=== PATIENT | male | born 1995 | race Caucasian/White ===

== ENCOUNTER 2020-03-21 10:29 | Emergency (ER) | payer BC ==
--- NOTE | 2020-03-21 10:54 | ER ---
Nurse's Notes [facility] Name: Hai Lockett Age: 24 yrs Sex: Male : 1995 Arrival Date: 03/21/2020 Time: 10:33 Bed 4 Private MD: Diagnosis: Acute upper respiratory infection, unspecified;Acute suppurative otitis media Presentation: 03/21 10:40 Chief complaint: Patient states: Diagnosed with strep throat at another facility last ll1 week. Almost done with his antibiotics, and feels like he should be feeling better already. Bilateral ear pain and throat pain. No known fever. Coronavirus screen: Client denies travel out of the [place] in the last 14 days. At this time, the client does not indicate any symptoms associated with coronavirus-19. Ebola Screen: Patient denies travel to an Ebola-affected area in the 21 days before illness onset. Initial Sepsis Screen: Does the patient meet any 2 criteria? HR > 90 bpm. Risk Assessment: Do you want to hurt yourself or someone else? Patient reports no desire to harm self or others. Onset of symptoms was March 08, 2020. 10:40 Method Of Arrival: Ambulatory ll1 10:40 Acuity: MICKY 4 ll1 Triage Assessment: 10:42 General: Appears comfortable, Behavior is calm, cooperative. Pain: Complains of pain in ll1 Bpth ears and throat Pain currently is 8 out of 10 on a pain scale. Quality of pain is described as aching, Pain began about 10 days Is intermittent. EENT: Ear canal clear on left ear and right ear Reports pain in left ear and right ear when swallowing. Neuro: No deficits noted. Cardiovascular: No deficits noted. Respiratory: No deficits noted. Historical: - Allergies: 10:42 No Known Allergies; ll1 - PSHx: 10:42 None; ll1 - Immunization history:: Flu vaccine status is unknown. - Social history:: Smoking status: Patient reports the use of cigarette tobacco products, smokes one-half pack cigarettes per day, Patient/guardian denies using alcohol, street drugs. Screenin:45 Abuse screen: Denies threats or abuse. Denies injuries from another. Nutritional jr10 screening: No deficits noted. Tuberculosis screening: No symptoms or risk factors identified. Fall Risk None identified. Assessment: 10:52 General: Appears in no apparent distress. Behavior is appropriate for age. Pain: jr10 Complains of pain in sore throat and dilcia earache. Respiratory: Airway is patent Respiratory effort is even, unlabored, Respiratory pattern is regular, symmetrical, Breath sounds are clear bilaterally. Denies shortness of breath. GI: No deficits noted. No signs and/or symptoms were reported involving the gastrointestinal system. EENT: Throat is reddened has patchy exudate bilaterally with gag reflex present, Reports difficulty swallowing nasal congestion nasal discharge dilcia earache and sore throat. Derm: No deficits noted. No signs and/or symptoms reported regarding the dermatologic system. Vital Signs: 10:40 BP 133 / 71; Pulse 110; Resp 18; Temp 98.4; Pulse Ox 100% ; Pain 8/10; ll1 ED Course: 10:33 Patient arrived in ED. mr 10:42 Triage completed. ll1 10:42 Arm band placed on Patient placed in an exam room, on a stretcher. ll1 10:45 Quin Gutierrez RN is Primary Nurse. jr10 10:46 Heriberto Howell PA is PHCP. jr8 10:46 Brian Miller MD is Attending Physician. jr8 10:46 Patient has correct armband on for positive identification. Bed in low position. Call jr10 light in reach. Side rails up X2. Pulse ox on. NIBP on. 10:46 No provider procedures requiring assistance completed. Patient did not have IV access jr10 during this emergency room visit. Administered Medications: No medications were administered Outcome: 10:53 Discharge ordered by . jr8 11:07 Discharged to home ambulatory. jr10 11:07 Condition: good 11:07 Discharge instructions given to patient, Instructed on discharge instructions, follow up and referral plans. Demonstrated understanding of instructions, follow-up care, medications, Prescriptions given X 2. 11:07 Patient left the ED. jr10 Signatures: Unique Gutierrez mr Heriberto Howell PA PA jr8 Claudia Garcia RN RN ll1 Quin Gutierrez RN RN jr10 Corrections: (The following items were deleted from the chart) 11:07 10:52 Respiratory: Airway is patent Respiratory effort is even, unlabored, Respiratory jr10 pattern is regular, symmetrical, Denies shortness of breath jr10
--- NOTE | 2020-03-21 10:54 | EDPHYS ---
Physician Documentation [facility] Name: Hai Lockett Age: 24 yrs Sex: Male : 1995 Arrival Date: 03/21/2020 Time: 10:33 Bed 4 Private MD: ED Physician Brian Miller HPI: 03/21 11:06 This 24 yrs old Male presents to ER via Ambulatory with complaints of Sore jr8 Throat, Ear Pain. 11:06 The patient presents with sore throat. The patient describes throat pain as constant, jr8 raw. Onset: The symptoms/episode began/occurred acutely, 1 week(s) ago. Severity of symptoms: At their worst the symptoms were mild, in the emergency department the symptoms are unchanged. Modifying factors: The symptoms are alleviated by nothing, the symptoms are aggravated by swallowing. Associated signs and symptoms: Pertinent positives: earache, rhinorrhea. The patient has not experienced similar symptoms in the past. The patient has been recently seen by a physician:. Patient stated that he was put on Augmentin when he was first seen but only took 5 days of it. Now has nasal drainage and earache with continued sore throat . Historical: - Allergies: 10:42 No Known Allergies; ll1 - PSHx: 10:42 None; ll1 - Immunization history:: Flu vaccine status is unknown. - Social history:: Smoking status: Patient reports the use of cigarette tobacco products, smokes one-half pack cigarettes per day, Patient/guardian denies using alcohol, street drugs. ROS: 11:06 Eyes: Negative for injury, pain, redness, and discharge, Neck: Negative for injury, jr8 pain, and swelling, Cardiovascular: Negative for chest pain, palpitations, and edema, Respiratory: Negative for shortness of breath, cough, wheezing, and pleuritic chest pain, Abdomen/GI: Negative for abdominal pain, nausea, vomiting, diarrhea, and constipation, Back: Negative for injury and pain, MS/Extremity: Negative for injury and deformity, Skin: Negative for injury, rash, and discoloration, Neuro: Negative for headache, weakness, numbness, tingling, and seizure. 11:06 ENT: Positive for ear pain, rhinorrhea, sinus congestion, sore throat. Exam: 11:06 Eyes: Pupils equal round and reactive to light, extra-ocular motions intact. Lids and jr8 lashes normal. Conjunctiva and sclera are non-icteric and not injected. Cornea within normal limits. Periorbital areas with no swelling, redness, or edema. Neck: Trachea midline, no thyromegaly or masses palpated, and no cervical lymphadenopathy. Supple, full range of motion without nuchal rigidity, or vertebral point tenderness. No Meningismus. Cardiovascular: Regular rate and rhythm with a normal S1 and S2. No gallops, murmurs, or rubs. Normal PMI, no JVD. No pulse deficits. Respiratory: Lungs have equal breath sounds bilaterally, clear to auscultation and percussion. No rales, rhonchi or wheezes noted. No increased work of breathing, no retractions or nasal flaring. Abdomen/GI: Soft, non-tender, with normal bowel sounds. No distension or tympany. No guarding or rebound. No evidence of tenderness throughout. Skin: Warm, dry with normal turgor. Normal color with no rashes, no lesions, and no evidence of cellulitis. MS/ Extremity: Pulses equal, no cyanosis. Neurovascular intact. Full, normal range of motion. Neuro: Awake and alert, GCS 15, oriented to person, place, time, and situation. Cranial nerves II-XII grossly intact. Motor strength 5/5 in all extremities. Sensory grossly intact. Cerebellar exam normal. Normal gait. 11:06 ENT: External ear(s): are unremarkable, Ear canal(s): are normal, clear, TM's: erythema, that is mild, on the right, fluid levels, on the right, Examination of the other ear shows no obvious abnormality, Nose: External nose: no obvious acute abnormality, Nasal septum: is midline, Nasal mucosa: moist, Turbinates: are normal, Mouth: Lips: moist, Oral mucosa: pink and intact, moist, Gums: pink, Tongue: is moist, Posterior pharynx: Airway: patent, Tonsils: bilaterally enlarged, with erythema, with exudate, Uvula: midline, non-edematous, no erythema, swelling, is not appreciated, erythema, is not appreciated, ulcerations noted to posterior pharynx . Vital Signs: 10:40 BP 133 / 71; Pulse 110; Resp 18; Temp 98.4; Pulse Ox 100% ; Pain 8/10; ll1 MDM: 10:47 Patient medically screened. jr8 Administered Medications: No medications were administered Disposition: 12:18 Co-signature as Attending Physician, Brian Miller MD I agree with the assessment and kdr plan of care. Disposition: 03/21/20 10:53 Discharged to Home. Impression: Acute upper respiratory infection, unspecified, Acute suppurative otitis media. - Condition is Stable. - Discharge Instructions: Otitis Media, Adult, Upper Respiratory Infection, Adult. - Prescriptions for Zithromax Z- Donald 250 mg Oral Tablet - take 1 tablet by ORAL route as directed for 5 days Day 1 - take two (2) tablets one time. Day 2, 3, 4 , 5 take one (1) tablet once daily.; 6 tablet. Prednisone 20 mg Oral Tablet - take 2 tablet by ORAL route once daily for 5 days; 10 tablet. - Medication Reconciliation Form, Thank You Letter, Antibiotic Education, Prescription Opioid Use form. - Follow up: Private Physician; When: 1 week; Reason: Recheck today's complaints, Continuance of care, Re-evaluation by your physician. - Problem is new. - Symptoms have improved. Signatures: Brian Miller MD MD kdr Roszak, Josh, PA PA jr8 Claudia Garcia RN RN ll1 Quin Gutierrez RN RN jr10 Corrections: (The following items were deleted from the chart) 11:07 10:53 03/21/2020 10:53 Discharged to Home. Impression: Acute upper respiratory jr10 infection, unspecified; Acute suppurative otitis media. Condition is Stable. Forms are Medication Reconciliation Form, Thank You Letter, Antibiotic Education, Prescription Opioid Use. Follow up: Private Physician; When: 1 week; Reason: Recheck today's complaints, Continuance of care, Re-evaluation by your physician. Problem is new. Symptoms have improved. jr8
[2020-03-23 11:00] VITALS: BP 133/71; TEMP 98.4; O2SAT 100
== END 2020-03-21 11:07 | disposition home or self-care (01) ==
LOC: ER 10:29
DX: J06.9 Acute upper respiratory infection, unspecified (principal); H66.93 Otitis media, unspecified, bilateral; F17.210 Nicotine dependence, cigarettes, uncomplicated
CPT/HCPCS: 99283